=== PATIENT | female | born 1985 | race Caucasian/White ===

== ENCOUNTER 2017-12-23 18:17 | Emergency (ER) | payer SELFPAY ==
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
[2017-12-23 19:38] VITALS: BP 0/0
== END 2017-12-23 19:36 ==
LOC: ED 18:17
DX: Z76.5 Malingerer [conscious simulation] (principal)
CPT/HCPCS: 99282

== ENCOUNTER 2017-12-24 13:36 | Emergency (ER) | payer OTHER ==
[2017-12-24 13:48] VITALS: BP 115/73
== END 2017-12-24 14:22 | disposition home or self-care (01) ==
LOC: ED 13:36
DX: R10.9 Unspecified abdominal pain (principal); M25.519 Pain in unspecified shoulder
CPT/HCPCS: 99281